=== PATIENT | male | born 1980 | race Asian ===

== ENCOUNTER 2016-12-29 15:06 | Emergency (ER) | payer BC ==
[2016-12-29] MEDS ORDERED: Oxymetazoline 0.05% NASAL SPR* 15 ML BTL ONE (15:49)
[2016-12-29 16:49] VITALS: BP 128/88
--- NOTE | 2016-12-29 21:04 | ED ---
Elham Covington Michael, scribed for Phil Trejo MD on 12/29/16 at 1633 . Throat Pain/Nasal Congestion - HPI Summary HPI Summary: 36 y/o male comes to the ED presenting with dysphasia since yesterday. The pt reports that he had a fish dinner last night and currently experiencing a foreign body sensation every 3 out of 4 times he swallows. He denies any pain, cough, and SOB. The SHx is significant for appendectomy. - History of Current Complaint Chief Complaint: EDForeignBodyEsophag Time Seen by Provider: 12/29/16 15:44 Hx Obtained From: Patient, Medical Records Onset/Duration: Sudden Onset, Lasting Days, Still Present Severity: Mild Associated Signs And Symptoms: Positive: Negative - cough. pain. SOB., Dysphagia - foreign body sensation with swallowing Cough: None - Allergies/Home Medications Allergies/Adverse Reactions: Allergies Allergy/AdvReac Type Severity Reaction Status Date / Time No Known Allergies Allergy Verified 12/29/16 15:12 Home Medications: Home Medications NK [No Home Medications Reported] 12/29/16 [History Confirmed 12/29/16] PMH/Surg Hx/FS Hx/Imm Hx Previously Healthy: Yes Infectious Disease History: No Infectious Disease History: Denies: Traveled Outside the [place] in Last 30 Days - Family History Known Family History: Positive: None Family History: pt denies a significant FHx - Social History Occupation: Employed Full-time Lives: With Family Alcohol Use: None Substance Use Type: Reports: None Smoking Status (MU): Light Every Day Tobacco Smoker Review of Systems Negative: Fever Positive: Other - dysphagia Negative: Shortness Of Breath, Cough All Other Systems Reviewed And Are Negative: Yes Physical Exam Triage Information Reviewed: Yes Vital Signs On Initial Exam: Initial Vitals Temp Pulse Resp BP Pulse Ox 97.0 F 75 16 147/98 100 12/29/16 15:08 12/29/16 15:08 12/29/16 15:08 12/29/16 15:08 12/29/16 15:08 Vital Signs Reviewed: Yes Appearance: Positive: Well-Appearing, No Pain Distress Head/Face: Positive: Normal Head/Face Inspection Eyes: Positive: KATE ENT: Positive: Normal ENT inspection - no foreign bodies noted in posterior pharynx., Other - moist mucosa Neck: Positive: Supple, Other: - soft. no adenopathy. no edema. Respiratory/Lung Sounds: Positive: Clear to Auscultation. Negative: Rales, Wheezes Cardiovascular: Positive: RRR, Other - no gallops, S1, S2. Negative: Murmur, Rub Abdomen Description: Positive: Nontender, Soft, Other: - flat Musculoskeletal: Positive: Other - no calf tenderness. Negative: Edema Left, Edema Right Neurological: Positive: Alert, Oriented to Person Place, Time Psychiatric: Positive: Other - logical. coherent. AVPU Assessment: Alert - [place] Coma Scale Coma Scale Total: 15 Diagnostics - Vital Signs Vital Signs Temp Pulse Resp BP Pulse Ox 12/29/16 15:08 97.0 F 75 16 147/98 100 - Laboratory Lab Statement: Any lab studies that have been ordered have been reviewed, and results considered in the medical decision making process. EENT Course/Dx - Course Assessment/Plan: Dr. Welch consulted pt and did a flexible laryngoscopy. He does not note foreign body and gave the pt specific instructions to handle sx this weekend and return to office if sx do not improve. Pt denies chest pain, sensation, or sx that foreign boy in pharyngeal. The pt is swallowing well. Dysphagia is intermittent. I dont believe imaging is warranted now, but maybe warranted in the future if his sx do not improve. - Differential Diagnoses Differential Diagnoses: Epiglottitis - Diagnoses Provider Diagnoses: Dysphagia Discharge - Discharge Plan Condition: Good Disposition: HOME Patient Education Materials: Dysphagia (ED) Referrals: Emmett Welch MD [Medical Doctor] - No Primary Care Phys,NOPCP [Primary Care Provider] - The documentation as recorded by the Elham robles Michael accurately reflects the service I personally performed and the decisions made by me, Phil Trejo MD.
== END 2016-12-29 16:47 | disposition home or self-care (01) ==
LOC: ED 15:06
DX: R13.10 Dysphagia, unspecified (principal); F17.210 Nicotine dependence, cigarettes, uncomplicated
CPT/HCPCS: 99281; A9270-GY

== ENCOUNTER 2019-12-31 15:27 | Emergency (ER) | payer OTHER ==
[2019-12-31 15:43] VITALS: BP 110/76
--- NOTE | 2019-12-31 16:22 | UC ---
FLU HPI - HPI Summary HPI Summary: 39 yo with 4 days of fever, cough, rigors and headache. He is most concerned about the risk posed to his 19 mo daughter. No shortness of breath, chest pain, nausea or vomiting. - History of Current Complaint Chief Complaint: UCRespiratory Stated Complaint: COUGH Time Seen by Provider: 12/31/19 16:11 Hx Obtained From: Patient Onset/Duration: Gradual Onset, Lasting Days - 4 Severity Currently: Moderate Severity Initially: Moderate Pain Intensity: 0 Associated Signs & Symptoms: Positive: T Max - 102 - Risk Factors Influenza Risk Factors: Negative - Allergy/Home Medications Allergies/Adverse Reactions: Allergies Allergy/AdvReac Type Severity Reaction Status Date / Time No Known Allergies Allergy Verified 12/31/19 15:44 Home Medications: Home Medications Ibuprofen TAB* [Motrin TAB* 400 MG] 400 mg PO Q6HR 12/31/19 [History Confirmed 12/31/19] PMH/Surg Hx/FS Hx/Imm Hx Previously Healthy: Yes - Surgical History Surgical History: Yes Surgery Procedure, Year, and Place: appendectomy - Family History Known Family History: Positive: Cardiac Disease - father has had bypass, Diabetes Family History: pt denies a significant FHx - Social History Occupation: Employed Full-time Alcohol Use: None Substance Use Type: None Smoking Status (MU): Former Smoker When Did the Patient Quit Smoking/Using Tobacco: 01/01/2018 Review of Systems All Other Systems Reviewed And Are Negative: Yes Constitutional: Positive: Fever, Fatigue Skin: Positive: Negative Eyes: Positive: Negative ENT: Positive: Negative Respiratory: Positive: Cough. Negative: Shortness Of Breath Cardiovascular: Negative: Palpitations, Chest Pain Gastrointestinal: Positive: Negative Genitourinary: Positive: Negative Motor: Positive: Negative Neurovascular: Positive: Negative Musculoskeletal: Positive: Negative Neurological/Mental Status: Positive: Headache Psychological: Positive: Negative Is Patient Immunocompromised?: No Physical Exam Triage Information Reviewed: Yes Appearance: Ill-Appearing - looks mildly unwell Vital Signs: Initial Vital Signs Temp 100.6 F 12/31/19 15:36 Pulse 93 12/31/19 15:36 Resp 16 12/31/19 15:36 BP 110/76 12/31/19 15:36 Pulse Ox 99 12/31/19 15:36 Eye Exam: Normal ENT: Positive: Pharyngeal erythema, TMs normal Neck: Positive: Supple, Nontender, No Lymphadenopathy Respiratory: Positive: Lungs clear, Normal breath sounds Cardiovascular: Positive: RRR, No Murmur Abdomen Description: Positive: Nontender, No Organomegaly, Soft, Other: - soft scar RLQ Musculoskeletal Exam: Normal Neurological Exam: Normal Psychological Exam: Normal Skin Exam: Normal Flu Course/Dx - Course Course Of Treatment: discussed likely influenza based on clinical presentation. HE requests Tamiflu due to his daughter's vulnerability (age 18 months). Continue symptomatic treatment. - Differential Dx/Diagnosis Differential Diagnosis/HQI/PQRI: Influenza, Upper Respiratory Infection Provider Diagnosis: Influenza Discharge ED - Sign-Out/Discharge Documenting (check all that apply): Patient Departure All imaging exams completed and their final reports reviewed: No Studies - Discharge Plan Condition: Stable Disposition: HOME Prescriptions: Oseltamivir CAP* [Tamiflu CAP*] 75 mg PO BID #10 cap Patient Education Materials: Influenza (ED) Referrals: Naren Mirza MD [Primary Care Provider] - Additional Instructions: Your symptoms are consistent with influenza, and you would like a trial of Tamiflu to decrease symptoms. Continue symptomatic treatment with ibuprofen and fluids and use of Delsym. You can check in with your daughter's cloth layer about preventative use of Tamiflu. Follow up if you have increasing shortness of breath, chest pain or fever persisting more than 8 or 9 days. - Billing Disposition and Condition Condition: STABLE Disposition: Home
== END 2019-12-31 16:40 | disposition home or self-care (01) ==
LOC: UCEAST 15:27
DX: J11.1 Influenza due to unidentified influenza virus with other respiratory manifestations (principal); Z87.891 Personal history of nicotine dependence
CPT/HCPCS: 99212; G0463

== ENCOUNTER 2020-02-08 09:51 | Emergency (ER) | payer OTHER ==
[2020-02-08 10:12] VITALS: BP 118/94
--- NOTE | 2020-02-08 10:23 | UC ---
Cardiac HPI - HPI Summary HPI Summary: Patient is 39 year old male, who present today to the urgent care with left -sided rib pain for past days. He reports that he is not sure of any specific injury but probably might have hurt it while moving the furniture(he thinks maybe he hit the corner of the table or the chair) 2 days ago . Noticed pain yesterday morning . Took ibuprofen last night without much relief. Pain is slightly worse with deep breathing and also while moving and turning the steering wheel . Denies any fever, chills, cough chest pain or shortness of breath . Denies any abdominal pain , nausea or vomiting , diarrhea or constipation. 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 . - History of Current Complaint Chief Complaint: UCGeneralIllness Stated Complaint: RIB INJURY Time Seen by Provider: 02/08/20 10:05 Hx Obtained From: Patient Pain Intensity: 4 - Allergy/Home Medications Allergies/Adverse Reactions: Allergies Allergy/AdvReac Type Severity Reaction Status Date / Time No Known Allergies Allergy Verified 02/08/20 10:03 Home Medications: Home Medications Ibuprofen TAB* [Motrin TAB* 400 MG] 600 mg PO ONCE 12/31/19 [History Confirmed 12/31/19] PMH/Surg Hx/FS Hx/Imm Hx - Additional Past Medical History Additional PMH: Past Medical History : None Past Surgical History: Appendectomy Family History : Coronary artery disease Social History : no alcohol, former smoker, no drug use. 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 Previously Healthy: Yes - Surgical History Surgical History: Yes Surgery Procedure, Year, and Place: appendectomy - Family History Known Family History: Positive: None, Cardiac Disease - father has had bypass, Diabetes Family History: pt denies a significant FHx - Social History Alcohol Use: None Substance Use Type: None Smoking Status (MU): Former Smoker When Did the Patient Quit Smoking/Using Tobacco: 01/01/2018 Review of Systems All Other Systems Reviewed And Are Negative: Yes Constitutional: Positive: Negative Skin: Positive: Negative Eyes: Positive: Negative ENT: Positive: Negative Respiratory: Positive: Negative. Negative: Cough Cardiovascular: Positive: Other - rib pain Gastrointestinal: Positive: Negative Genitourinary: Positive: Negative Motor: Positive: Negative Neurovascular: Positive: Negative Musculoskeletal: Positive: Negative Neurological/Mental Status: Positive: Negative Psychological: Positive: Negative Is Patient Immunocompromised?: No Physical Exam - Summary Physical Exam Summary: Physical Exam: Const: Appears well. No signs of apparent distress present. Alert and oriented x 3. Musculo: Walks with a normal gait. Head/Face: Atraumatic, normocephalic on inspection. Eyes: EOMI and PERRLA in both eyes. Conjunctivae clear. No discharge noted ENT: Hearing normal, CVS: Regular rate and Rhythm, S1S2 normal , no murmurs identified. Lungs: Clear to auscultation bilaterally Chest: Tenderness to palpation is noted anteriorly at the fifth and the sixth rib. No tenderness on the lateral aspect. Anteroposterior compression test without much pain. Extremities: Peripheral circulation is grossly normal. Pulses 2+ Abdomen : Soft non tender Skin: No lesions or rash located on the upper extremities or on the lower extremities. Neuro: Cranial nerves II to XII intact, motor and sensory intact. DTR Intact bilaterally. Mood is normal. Affect is normal. Triage Information Reviewed: Yes Vital Signs: Initial Vital Signs Temp 97.8 F 02/08/20 10:05 Pulse 73 02/08/20 10:05 Resp 18 02/08/20 10:05 BP 118/94 02/08/20 10:05 Pulse Ox 97 02/08/20 10:05 Vital Signs Reviewed: Yes Diagnostics - Radiology No standard instances Radiology Interpretation Completed By: Radiologist - X-Rays of left ribs: FINDINGS: The lungs are clear. There is no pleural effusion or pneumothorax. The cardiomediastinal silhouette is within normal limits. The upper abdominal contents are normal. Osseous structures are unremarkable. . IMPRESSION: NO DISPLACED RIB FRACTURE OR PNEUMOTHORAX. - Assessment/Plan Course Of Treatment: Suspect contusion of th e5th and 6th rib with some intercostal pain. X-Rays of left ribs:FINDINGS: The lungs are clear. There is no pleural effusion or pneumothorax. The cardiomediastinal silhouette is within normal limits. The upper abdominal contents are normal. Osseous structures are unremarkable. . IMPRESSION: NO DISPLACED RIB FRACTURE OR PNEUMOTHORAX. Findings discussed with the patient and discussed outcomes and recovery. - Clinical Impression Provider Diagnosis: Contusion of rib on left side Discharge ED - Sign-Out/Discharge Documenting (check all that apply): Patient Departure All imaging exams completed and their final reports reviewed: Yes - Discharge Plan Condition: Stable Disposition: HOME Patient Education Materials: Rib Contusion (ED) Referrals: Naren Mirza MD [Primary Care Provider] - If Needed Additional Instructions: Take ibuprofen 400 mg twice a day for 3-5 days and after that as needed. Ice locally 15 minutes at a time 2-3 times a day. Follow up with your primary care doctor if needed Return to Urgent care / ER if symptoms get worse. - Billing Disposition and Condition Condition: STABLE Disposition: Home
== END 2020-02-08 11:08 | disposition home or self-care (01) ==
LOC: UCEAST 09:51
DX: S20.212A Contusion of left front wall of thorax, initial encounter (principal); X58.XXXA Exposure to other specified factors, initial encounter; Y92.9 Unspecified place or not applicable; Z87.891 Personal history of nicotine dependence
CPT/HCPCS: 99212; G0463